=== PATIENT | male | born 1995 | race African-American/Black ===

== ENCOUNTER 2016-10-13 17:37 | Emergency (ER) | payer OTHER ==
[~2016-10-13] VITALS: Ht 170.2 cm; Wt 60.0 kg
[~2016-10-13 17:37] MED LIST: Z.0.NO CURRENT MEDS
[2016-10-13 17:39] VITALS: BP 124/84; PULSE 70; RESP 16; TEMP 97.4; O2SAT 99
[2016-10-13] MEDS ORDERED: CYCL1TAB29 PO (17:59)
[2016-10-13] MEDS ORDERED: IBUP800T23 PO (17:59)
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
[2016-10-13] MEDS ORDERED: CYCLOBENZAPRINE HCL 10 MG TAB PO ONE (18:00)
[2016-10-13] MEDS ORDERED: IBUPROFEN 800 MG TAB PO ONE (18:00)
== END 2016-10-13 18:32 | disposition home or self-care (01) ==
LOC: NEPB 17:37
DX: S39.012A Strain of muscle, fascia and tendon of lower back, initial encounter (principal); M62.830 Muscle spasm of back; V89.2XXA Person injured in unspecified motor-vehicle accident, traffic, initial encounter
CPT/HCPCS: 99283

== ENCOUNTER 2018-03-09 10:26 | Observation (INO) | payer MEDICAID, OTHER ==
[~2018-03-09] VITALS: Ht 170.2 cm; Wt 62.0 kg
[~2018-03-09 10:26] MED LIST changes: +CYCL10TA PO; +IBUP1TAB7 PO; -Z.0.NO CURRENT MEDS
[2018-03-09 10:34] VITALS: BP 108/65; PULSE 92; RESP 16; TEMP 100.1; O2SAT 95
--- NOTE | 2018-03-09 10:44 | PD ---
HPI Chief Complaint: Skin Problem Time Seen by Provider: 10:42 Travel History International Travel<30 days: No Contact w/Intl Traveler<30days: No Traveled to known affect area: No History of Present Illness HPI 22 YO [id number] m presents to the ED for evaluation of ~12 hour history of "bite" of the left hand. Patient did not see an insect. He can identify no acute injury to the area. He endorses accompanying chills, joint and body aches. Patient denies history of MRSA. Denies numbness, tingling, weakness, limitations or range of motion. He states he is otherwise healthy. States immunizations are up-to-date, patient is in the [employer]. No treatment attempted at home. [facility] Past Medical History Medical History: Denies Significant Hx Developmental Delay: No Diminished Hearing: No Medical other: Yes (STATES ENLARGED TONSALS) Immunizations Current: Yes Tetanus Vaccination: < 5 Years Past Surgical History Surgical History: No Previous Surgery Other Surgery: Yes (ear surgery) Social History Alcohol Use: Yes (SOCIAL) Tobacco Use: Yes (4 CIG DAILY) Substance Use: No Allergies-Medications (Allergen,Severity, Reaction): Coded Allergies: lactose (Unverified Adverse Reaction, Mild, INTOLERANCE, 03/09/18) Reported Meds & Prescriptions Reported Meds & Active Scripts Active No Active Prescriptions or Reported Medications Review of Systems Except as stated in HPI: all other systems reviewed are Neg Physical Exam Narrative GENERAL: Well-nourished, well-developed thin -Thai male in no acute distress. SKIN: Focused skin assessment warm/dry. 1 cm ecchymotic area of the left thenar eminence. Surrounding cellulitic changes 4cm x 3 cm that do not involve the phalanx or the wrist. No crepitus. No fluctuance. HEAD: Normocephalic. ENT: Pearly gomez tympanic membranes bilaterally. Oropharynx without erythema, edema, exudate. EYES: No scleral icterus. No injection or drainage. NECK: Supple, trachea midline. No JVD or lymphadenopathy. CARDIOVASCULAR: Regular rate and rhythm without murmurs, gallops, or rubs. RESPIRATORY: Breath sounds clear and equal bilaterally. No accessory muscle use. GASTROINTESTINAL: Abdomen soft, non-tender, nondistended. MUSCULOSKELETAL: No cyanosis, or edema. FOCUSED LEFT UPPER EXTREMITY EXAM: 2+ radial pulse. Patient retains full, active, painless ROM of the fingers and wrist. Strong finger to thumb opposition with each digit. Neurovascularly intact distally. BACK: Nontender without obvious deformity. No CVA tenderness. Data Data Last Documented VS Vital Signs Date Time Temp Pulse Resp B/P (MAP) Pulse Ox O2 Delivery O2 Flow Rate FiO2 03/09/18 11:33 99.3 83 16 99 Room Air 03/09/18 10:34 108/65 (79) Orders Orders Acetaminophen (Tylenol) (03/09/18 10:45) Basic Metabolic Panel (Bmp) (03/09/18 10:48) Complete Blood Count With Diff (03/09/18 10:48) Iv Access Insert/Monitor (03/09/18 10:48) Sodium Chlor 0.9% 1000 Ml Inj (Ns 1000 M (03/09/18 11:00) Lactic Acid (03/09/18 10:48) Clindamycin 900 Mg/Ns Premix (Cleocin 90 (03/09/18 11:45) Hand, Limited (2vws) (03/09/18 12:06) Piperacil-Tazo 4.5 Gm Premix (Zosyn 4.5 (03/09/18 12:15) Blood Culture (03/09/18 12:10) Admit Order (Ed Use Only) (03/09/18 12:20) Place In Observation (03/09/18 ) Vital Signs (Adult) Q4H (03/09/18 12:20) Activity Oob Ad Philomena (03/09/18 12:20) Diet Regular Basic (03/09/18 Lunch) Sodium Chloride 0.9% Flush (Ns Flush) (03/09/18 12:30) Sodium Chloride 0.9% Flush (Ns Flush) (03/09/18 21:00) Acetaminophen (Tylenol) (03/09/18 12:30) Complete Blood Count With Diff (03/10/18 06:00) Scd Bilateral/Knee High DEANGELO.BID (03/09/18 12:20) Naloxone Inj (Narcan Inj) (03/09/18 12:30) Magnesium Hydroxide Liq (Milk Of Magnesi (03/09/18 12:30) Sennosides (Senokot) (03/09/18 12:30) Bisacodyl Supp (Dulcolax Supp) (03/09/18 12:30) Lactulose Liq (Lactulose Liq) (03/09/18 12:30) Labs Laboratory Tests Test 03/09/18 10:51 White Blood Count 16.5 TH/MM3 Red Blood Count 4.91 MIL/MM3 Hemoglobin 15.6 GM/DL Hematocrit 46.1 % Mean Corpuscular Volume 93.9 FL Mean Corpuscular Hemoglobin 31.8 PG Mean Corpuscular Hemoglobin Concent 33.9 % Red Cell Distribution Width 12.0 % Platelet Count 257 TH/MM3 Mean Platelet Volume 7.6 FL Neutrophils (%) (Auto) 84.9 % Lymphocytes (%) (Auto) 8.3 % Monocytes (%) (Auto) 5.5 % Eosinophils (%) (Auto) 0.1 % Basophils (%) (Auto) 1.2 % Neutrophils # (Auto) 14.0 TH/MM3 Lymphocytes # (Auto) 1.4 TH/MM3 Monocytes # (Auto) 0.9 TH/MM3 Eosinophils # (Auto) 0.0 TH/MM3 Basophils # (Auto) 0.2 TH/MM3 CBC Comment DIFF FINAL Differential Comment Blood Urea Nitrogen 6 MG/DL Creatinine 1.00 MG/DL Random Glucose 99 MG/DL Calcium Level 8.7 MG/DL Sodium Level 137 MEQ/L Potassium Level 4.2 MEQ/L Chloride Level 102 MEQ/L Carbon Dioxide Level 28.6 MEQ/L Anion Gap 6 MEQ/L Estimat Glomerular Filtration Rate 114 ML/MIN Lactic Acid Level 0.8 mmol/L MDM Medical Decision Making Medical Screen Exam Complete: Yes Emergency Medical Condition: Yes Differential Diagnosis Insect bite versus cellulitis versus sepsis versus other Narrative Course 22-year-old male presents the ED for evaluation of bug bite of the left hand with accompanying fevers and body aches. Onset about 12 hours ago. Temp 100.1 , pulse 92 on presentation. Physical exam consistent with early cellulitis left thenar eminence. IV was established. Patient was ministered 1 L normal saline IV, 500 mg Tylenol by mouth. Blood cultures were obtained. Patient was administered 900 mg clindamycin. CBC: WBC 16.5. Hemoglobin 15.6. CMP BUN 6, creatinine 1. Lactic acid 0.8. Given the elevated white count will admit the patient. Patient is somewhat concerned about this, states that [place] Mom at bedside reassured the patient. He agrees to admission. Blood cultures were obtained. Patient was administered IV Zosyn. I spoke with Dr. Rodriguez who agrees to accept the patient to the medicine service. Please see medicine notes for disposition. Sepsis Criteria SIRS Criteria (2 or more): Heart rate over 90, WBC > 08940, < 4000 or > 10% bands Sepsis Criteria (SIRS+source): Infect source susp/known Diagnosis Primary Impression: Cellulitis of left hand Scripts No Active Prescriptions or Reported Meds Alyse Bonilla Mar 09, 2018 10:44
[2018-03-09] MEDS ORDERED: ACETAMINOPHEN 500 MG CPLT PO ONE (10:45)
[2018-03-09] MEDS ORDERED: SODIUM CHLOR 0.9% 1000 ML INJ 1,000 ML IV ONE (11:00)
[2018-03-09 11:06] LABS: BASOPHIL # 0.2 TH/MM3 (0-0.2); BASOPHIL % 1.2 % (0.0-2.0); EOSINOPHIL % 0.1 % (0.0-4.0); HEMATOCRIT 46.1 % (39.0-51.0); HEMOGLOBIN 15.6 GM/DL (13.0-17.0); LYMPH % 8.3 % (9.0-44.0); LYMPHOCYTE # 1.4 TH/MM3 (1.0-4.8); MEAN CELL VOLUME 93.9 FL (80.0-100.0); MEAN CORPUSCULAR HEMOGLOBIN 31.8 PG (27.0-34.0); MEAN CORPUSCULAR HGB CONC 33.9 % (32.0-36.0); MEAN PLATELET VOLUME 7.6 FL (7.0-11.0); MONO % 5.5 % (0.0-8.0); MONOCYTE # 0.9 TH/MM3 (0-0.9); NEUT % 84.9 % (16.0-70.0); PLATELET COUNT 257 TH/MM3 (150-450); RED BLOOD COUNT 4.91 MIL/MM3 (4.50-5.90); WHITE BLOOD COUNT 16.5 TH/MM3 (4.0-11.0)
[2018-03-09 11:16] LABS: CALCIUM 8.7 MG/DL (8.5-10.1)
[2018-03-09 11:17] LABS: BICARBONATE 28.6 MEQ/L (21.0-32.0)
[2018-03-09 11:33] VITALS: PULSE 83; RESP 16; TEMP 99.3; O2SAT 99
[2018-03-09] MEDS ORDERED: CLINDAMYCIN 900 MG/NS PREMIX 50 ML IV ONE (11:45)
[2018-03-09] MEDS ORDERED: PIPERACIL-TAZO 4.5 GM PREMIX 100 ML IV ONE (12:15)
[2018-03-09] MEDS ORDERED: SENNOSIDES 8.6 MG TAB PO PRN (12:30)
[2018-03-09] MEDS ORDERED: SODIUM CHLORIDE 0.9% FLUSH 10 ML FLUSH IV FLUSH PRN (12:30)
[2018-03-09] MEDS ORDERED: MAGNESIUM HYDROXIDE SUSP 30 ML CUP PO PRN (12:30)
[2018-03-09] MEDS ORDERED: NALOXONE HCL 0.4 MG/ML AMP IV PUSH PRN (12:30)
[2018-03-09] MEDS ORDERED: BISACODYL 10 MG SUPP RECTAL PRN (12:30)
[2018-03-09] MEDS ORDERED: ACETAMINOPHEN 325 MG TAB PO PRN (12:30)
[2018-03-09] MEDS ORDERED: LACTULOSE SYRUP 20 GM/30 ML CUP PO PRN (12:30)
--- NOTE | 2018-03-09 12:45 | RADRPT ---
EXAM DATE: 03/09/2018 12:32 PM EDT AGE/SEX: 22 years / Male INDICATIONS: Infected area left thumb CLINICAL DATA: This is the patient's initial encounter. Patient reports that signs and symptoms have been present for 2 days and indicates a pain score of 5/10. MEDICAL/SURGICAL HISTORY: None. None. COMPARISON: No prior exams available for comparison. FINDINGS: Bony structures are intact and in normal alignment. Osseous density is normal. Soft tissues are unre markable. No radiopaque foreign bodies seen. CONCLUSION: No acute fracture left hand. Electronically signed by: Herbie Ward MD 03/09/2018 12:43 PM EDT
[2018-03-09 13:49] VITALS: BP 93/52; PULSE 68; RESP 16; TEMP 98.1; O2SAT 99
--- NOTE | 2018-03-09 14:04 | HHI.HP ---
[facility] [place] No Primary Care Physician Admission Diagnosis Cellulitis left hand Diagnoses: (1) Cellulitis of left hand Diagnosis: Principal Chief Complaint: Left hand erythema Travel History International Travel<30 Days: No Contact w/Intl Traveler <30 Da: No Traveled to Known Affected Are: No Sepsis Criteria SIRS Criteria (2 or more): WBC > 50451, < 4000 or > 10% bands History of Present Illness 22-year-old male with known chronic medical illnesses who presented to the emergency department today to evaluate a spot on his left hand. Patient states that he noticed yesterday that there was a dark color radiated area is located on his left thenar area. He denies any pain unless you push on it. There is been no signs of any insect bite, injury, exudates, purulence. Patient indicates that he had a fever of 101.0 yesterday. He came to the emergency department for evaluation today. Patient had low-grade fever of 100.1. Workup was performed with x-rays which are unremarkable. Laboratory study was performed which did show elevated white count. Because of that reason it was recommended by the ER that the patient be observed in the hospital for further evaluation. Patient has not undergone any outpatient treatment or management. Review of Systems Constitutional: COMPLAINS OF: Fever Integumentary: COMPLAINS OF: Abnormal pigmentation Except as stated in HPI: all other systems reviewed are Neg Past Family Social History Past Medical History No chronic medical illnesses Past Surgical History Ear surgery Reported Medications No Active Prescriptions or Reported Medications Allergies: Coded Allergies: lactose (Unverified Adverse Reaction, Mild, INTOLERANCE, 03/09/18) Family History Family history was reviewed and unremarkable Social History Patient smokes about half pack of cigarettes a day for 1 year. Patient drinks alcohol occasionally. Patient denies any illicit drug Physical Exam Vital Signs Vital Signs Date Time Temp Pulse Resp B/P (MAP) Pulse Ox O2 Delivery O2 Flow Rate FiO2 03/09/18 13:49 98.1 68 16 93/52 (66) 99 Room Air 03/09/18 11:33 99.3 83 16 99 Room Air 6/24/18 10:34 100.1 92 16 108/65 (79) 95 Physical Exam GENERAL: Well-developed, well-nourished, in no acute distress. alert and orientated HEENT: Head is normocephalic without any lesions or masses noted. Facial features are symmetric. Eyes: Pupils equal round reactive to light. Extraocular muscles are intact. Conjunctivae were clear. Oropharyngeal: Pharynx without any erythema edema. Tongue is midline without deviation. Buccal mucosa is moist without any masses or lesions NECK: Supple without any masses. Trachea midline no deviation. No JVD, no bruits are appreciated CARDIAC: Regular rhythm, regular rate. S1/S2 are heard. No murmurs gallops or rubs. LUNGS: Clear to auscultation bilaterally. No wheeze, rhonchi or rales. No use of accessory muscles on inspiration or expiration. ABDOMEN: Soft, nontender. Nondistended. Bowel sounds heard in all 4 quadrants. No organomegaly or masses. Negative rebound, negative guarding EXTREMITIES: No edema, pulses are equal bilaterally. No cyanosis or clubbing NEUROLOGY: Mood and affect appear appropriate. Cranial nerves II through XII grossly intact. Muscle strength 5/5 in upper and lower extremities bilaterally. Deep tendon reflexes are 2+ in upper and lower extremities bilaterally. Left hand: On the thenar area there appears to be a small area measuring 0.5 cm what appears to be like a small bruise. There is no puncture wound, fluctuance , mass, induration, edema. There is some mild erythema noted proximal 1 cm annular around the area. Appears to look like a bruise Laboratory Laboratory Tests Test 03/09/18 10:51 White Blood Count 16.5 Red Blood Count 4.91 Hemoglobin 15.6 Hematocrit 46.1 Mean Corpuscular Volume 93.9 Mean Corpuscular Hemoglobin 31.8 Mean Corpuscular Hemoglobin Concent 33.9 Red Cell Distribution Width 12.0 Platelet Count 257 Mean Platelet Volume 7.6 Neutrophils (%) (Auto) 84.9 Lymphocytes (%) (Auto) 8.3 Monocytes (%) (Auto) 5.5 Eosinophils (%) (Auto) 0.1 Basophils (%) (Auto) 1.2 Neutrophils # (Auto) 14.0 Lymphocytes # (Auto) 1.4 Monocytes # (Auto) 0.9 Eosinophils # (Auto) 0.0 Basophils # (Auto) 0.2 CBC Comment DIFF FINAL Differential Comment Blood Urea Nitrogen 6 Creatinine 1.00 Random Glucose 99 Calcium Level 8.7 Sodium Level 137 Potassium Level 4.2 Chloride Level 102 Carbon Dioxide Level 28.6 Anion Gap 6 Estimat Glomerular Filtration Rate 114 Lactic Acid Level 0.8 Date/Time Source Procedure Growth Status 03/09/18 12:20 Blood Line Aerobic Blood Culture Pending Received 03/09/18 12:20 Blood Line Anaerobic Blood Culture Pending Received Result Diagram: 03/09/18 1051 03/09/18 1051 Imaging Last Impressions Hand X-Ray 03/09/18 1206 Signed Impressions: CONCLUSION: No acute fracture left hand. Caprini VTE Risk Assessment Caprini VTE Risk Assessment: No/Low Risk (score <= 1) Caprini Risk Assessment Model Point Value = 1 Point Value = 2 Point Value = 3 Point Value = 5 Age 41-60 Minor surgery BMI > 25 kg/m2 Swollen legs Varicose veins or History of unexplained or recurrent spontaneous Oral contraceptives or hormone replacement Sepsis (< 1 month) Serious lung disease, including pneumonia (< 1 month) Abnormal pulmonary function Acute myocardial infarction Congestive heart failure (< 1 month) History of inflammatory bowel disease Medical patient at bed rest Age 61-74 Arthroscopic surgery Major open surgery (> 45 min) Laparoscopic surgery (> 45 min) Malignancy Confined to bed (> 72 hours) Immobilizing plaster cast Central venous access Age >= 75 History of VTE Family history of VTE Factor V Leiden Prothrombin [id number] Lupus anticoagulant Anticardiolipin antibodies Elevated serum homocysteine Heparin-induced thrombocytopenia Other congenital or acquired thrombophilia Stroke (< 1 month) Elective arthroplasty Hip, pelvis, or leg fracture Acute spinal cord injury (< 1 month) Prophylaxis Regimen Total Risk Factor Score Risk Level Prophylaxis Regimen 0-1 Low Early ambulation 2 Moderate Order ONE of the following: *Sequential Compression Device (SCD) *Heparin 5000 units SQ BID 3-4 Higher Order ONE of the following medications: *Heparin 5000 units SQ TID *Enoxaparin/Lovenox 40 mg SQ daily (WT < 150 kg, CrCl > 30 mL/min) *Enoxaparin/Lovenox 30 mg SQ daily (WT < 150 kg, CrCl > 10-29 mL/min) *Enoxaparin/Lovenox 30 mg SQ BID (WT < 150 kg, CrCl > 30 mL/min) AND/OR *Sequential Compression Device (SCD) 5 or more Highest Order ONE of the following medications: *Heparin 5000 units SQ TID (Preferred with Epidurals) *Enoxaparin/Lovenox 40 mg SQ daily (WT < 150 kg, CrCl > 30 mL/min) *Enoxaparin/Lovenox 30 mg SQ daily (WT < 150 kg, CrCl > 10-29 mL/min) *Enoxaparin/Lovenox 30 mg SQ BID (WT < 150 kg, CrCl > 30 mL/min) AND *Sequential Compression Device (SCD) Assessment and Plan Assessment and Plan Cellulitis of the left hand -Status post IV antibiotic of Zosyn, clindamycin in the emergency department -Keep hand clean, wash with soap and water daily -Bactrim DS 1 tablet twice daily Leukocytosis -Continue IV fluid -Monitor CBC DVT prevention -Low risk, early ambulation Nikolai Cummings Mar 09, 2018 14:04
--- NOTE | 2018-03-09 14:49 | HHI.DCPOC ---
Discharge Care Plan Diagnosis: (1) Cellulitis of left hand Goals to Promote Your Health * To prevent worsening of your condition and complications * To maintain your health at the optimal level Directions to Meet Your Goals Take your medications as prescribed Follow your dietary instruction Follow activity as directed Keep your appointments as scheduled Take your immunizations and boosters as scheduled If your symptoms worsen call your PCP, if no PCP go to Urgent Care Center or Emergency Room Smoking is Dangerous to Your Health. Avoid second hand smoke Call the 24-hour hour crisis hotline for domestic abuse at Nikolai Cummings Mar 09, 2018 14:49
[2018-03-09 16:00] VITALS: BP 111/61; PULSE 72; RESP 21; TEMP 97.2; O2SAT 95
[2018-03-09] MEDS: SODIUM CHLOR 0.9% 1000 ML INJ 1,000 ML IV SCH (16:09)
[2018-03-09] MEDS: SULFAMETHOXAZOLE-TRIMETHOPRIM DS 800-160 MG TAB PO SCH ×2 (16:10→21:28)
[2018-03-09 20:00] VITALS: BP 108/66; PULSE 73; RESP 18; TEMP 97.9; O2SAT 98
[2018-03-09] MEDS ORDERED: SODIUM CHLORIDE 0.9% FLUSH 10 ML FLUSH IV FLUSH SCH (21:00)
[2018-03-10] VITALS: BP 115/57; PULSE 66; RESP 18; TEMP 97.8; O2SAT 98
[2018-03-10] MEDS: SODIUM CHLOR 0.9% 1000 ML INJ 1,000 ML IV SCH (02:09)
[2018-03-10 06:27] LABS: AUTOMATED NEUTROPHIL # 5.7 TH/MM3 (1.8-7.7); BASOPHIL % 0.5 % (0.0-2.0); EOSINOPHIL # 0.1 TH/MM3 (0-0.4); EOSINOPHIL % 1.2 % (0.0-4.0); HEMATOCRIT 39.7 % (39.0-51.0); MEAN CELL VOLUME 93.4 FL (80.0-100.0); MEAN CORPUSCULAR HGB CONC 35.3 % (32.0-36.0); MEAN PLATELET VOLUME 7.8 FL (7.0-11.0); MONO % 9.3 % (0.0-8.0); MONOCYTE # 0.9 TH/MM3 (0-0.9); PLATELET COUNT 240 TH/MM3 (150-450); RED BLOOD COUNT 4.25 MIL/MM3 (4.50-5.90); RED CELL DISTRIBUTION WIDTH 12.2 % (11.6-17.2); WHITE BLOOD COUNT 9.7 TH/MM3 (4.0-11.0)
[2018-03-10] MEDS ORDERED: SULF1TAB23 PO (07:18)
--- NOTE | 2018-03-10 07:25 | HHI.PR ---
Subjective Remarks Patient seen and examined today for cellulitis and leukocytosis, Patient is much improved, WBC returned to normal after hydration. Remains afebrile. Vitals stable Objective Vitals Vital Signs Date Time Temp Pulse Resp B/P (MAP) Pulse Ox O2 Delivery O2 Flow Rate FiO2 03/10/18 00:00 97.8 66 18 115/57 (76) 98 03/09/18 20:00 97.9 73 18 108/66 (80) 98 03/09/18 16:00 97.2 72 21 111/61 (78) 95 03/09/18 14:15 03/09/18 13:49 98.1 68 16 93/52 (66) 99 Room Air 03/09/18 11:33 99.3 83 16 99 Room Air 03/09/18 10:34 100.1 92 16 108/65 (79) 95 I/O 03/09/18 03/09/18 03/09/18 03/10/18 03/10/18 03/10/18 07:00 15:00 23:00 07:00 15:00 23:00 Intake Total 1150 ml 560 ml 1200 ml Output Total 400 ml Balance 1150 ml 160 ml 1200 ml Intake Oral 560 ml IV Total 1150 ml 1200 ml Output Urine Total 400 ml # Voids 3 2 # Bowel Movements 0 0 Result Diagram: 03/10/18 0530 03/09/18 1051 Imaging Last Impressions Hand X-Ray 03/09/18 1206 Signed Impressions: CONCLUSION: No acute fracture left hand. Objective Remarks GENERAL: Well-developed, well-nourished, in no acute distress. alert and orientated HEENT: Head is normocephalic without any lesions or masses noted. Facial features are symmetric. Eyes: Extraocular muscles are intact. Conjunctivae were clear. NECK: Supple without any masses. Trachea midline no deviation. No JVD, CARDIAC: Regular rhythm, regular rate. S1/S2 are heard. No murmurs gallops or rubs. LUNGS: Clear to auscultation bilaterally. No wheeze, rhonchi or rales. No use of accessory muscles on inspiration or expiration. ABDOMEN: Soft, nontender. Nondistended. Bowel sounds heard in all 4 quadrants. No organomegaly or masses. Negative rebound, negative guarding EXTREMITIES: No edema, pulses are equal bilaterally. No cyanosis or clubbing NEUROLOGY: Mood and affect appear appropriate. Cranial nerves II through XII grossly intact.moving all extremity\ies, speach is clear. Left hand: On the thenar area there appears to be a small area measuring 0.5 cm what appears to be like a small bruise. There is no puncture wound, fluctuance , mass, induration, edema. There is some mild erythema noted proximal 1 cm annular around the area. Appears to look like a bruise Urinary Catheter: No Vascular Central Line Catheter: No A/P Assessment and Plan Cellulitis of the left hand -Status post IV antibiotic of Zosyn, clindamycin in the emergency department -Keep hand clean, wash with soap and water daily -Bactrim DS 1 tablet twice daily Leukocytosis, resolved -Continue IV fluid -Monitor CBC DVT prevention -Low risk, early ambulation Discharge Planning Discharge home in stable condition Diet: regular diet Activity: Ad Philomena Medication per medication reconciliation sheet Follow up with Primary medical doctor in 1 week Nikolai Cummings Mar 10, 2018 07:25
--- NOTE | 2018-03-13 11:21 | PD ---
Physical Exam Narrative I, Dr. Dick, have reviewed the advance practice practitioner's documentation and am in agreement, met with the patient face to face, made the diagnosis, and the medical decision making was done by me. *My assessment and Findings: Please see mid-level provider note for full history and physical and disposition. Briefly, patient presented to the emergency department complaining of left hand swelling, pain and fever (tmax 101 ). States that he believes that he was possibly bitten by an insect. Patient does have a low-grade temp in the ER and had swelling tenderness and slight erythema to the left thenar eminence. Will order IV fluids, antipyretics, labs , x-ray, and likely admission for observation for IV antibiotics. Data Data Last Documented VS Vital Signs Date Time Temp Pulse Resp B/P (MAP) Pulse Ox O2 Delivery O2 Flow Rate FiO2 03/09/18 11:33 99.3 83 16 99 Room Air 03/09/18 10:34 108/65 (79) Orders Orders Acetaminophen (Tylenol) (03/09/18 10:45) Basic Metabolic Panel (Bmp) (03/09/18 10:48) Complete Blood Count With Diff (03/09/18 10:48) Iv Access Insert/Monitor (03/09/18 10:48) Sodium Chlor 0.9% 1000 Ml Inj (Ns 1000 M (03/09/18 11:00) Lactic Acid (03/09/18 10:48) Clindamycin 900 Mg/Ns Premix (Cleocin 90 (03/09/18 11:45) Hand, Limited (2vws) (03/09/18 12:06) Piperacil-Tazo 4.5 Gm Premix (Zosyn 4.5 (03/09/18 12:15) Blood Culture (03/09/18 12:10) Admit Order (Ed Use Only) (03/09/18 12:20) Place In Observation (03/09/18 ) Vital Signs (Adult) Q4H (03/09/18 12:20) Activity Oob Ad Philomena (03/09/18 12:20) Diet Regular Basic (03/09/18 Lunch) Sodium Chloride 0.9% Flush (Ns Flush) (03/09/18 12:30) Sodium Chloride 0.9% Flush (Ns Flush) (03/09/18 21:00) Acetaminophen (Tylenol) (03/09/18 12:30) Complete Blood Count With Diff (03/10/18 06:00) Scd Bilateral/Knee High DEANGELO.BID (03/09/18 12:20) Naloxone Inj (Narcan Inj) (03/09/18 12:30) Magnesium Hydroxide Liq (Milk Of Magnesi (03/09/18 12:30) Sennosides (Senokot) (03/09/18 12:30) Bisacodyl Supp (Dulcolax Supp) (03/09/18 12:30) Lactulose Liq (Lactulose Liq) (03/09/18 12:30) Labs Laboratory Tests Test 03/09/18 10:51 White Blood Count 16.5 TH/MM3 Red Blood Count 4.91 MIL/MM3 Hemoglobin 15.6 GM/DL Hematocrit 46.1 % Mean Corpuscular Volume 93.9 FL Mean Corpuscular Hemoglobin 31.8 PG Mean Corpuscular Hemoglobin Concent 33.9 % Red Cell Distribution Width 12.0 % Platelet Count 257 TH/MM3 Mean Platelet Volume 7.6 FL Neutrophils (%) (Auto) 84.9 % Lymphocytes (%) (Auto) 8.3 % Monocytes (%) (Auto) 5.5 % Eosinophils (%) (Auto) 0.1 % Basophils (%) (Auto) 1.2 % Neutrophils # (Auto) 14.0 TH/MM3 Lymphocytes # (Auto) 1.4 TH/MM3 Monocytes # (Auto) 0.9 TH/MM3 Eosinophils # (Auto) 0.0 TH/MM3 Basophils # (Auto) 0.2 TH/MM3 CBC Comment DIFF FINAL Differential Comment Blood Urea Nitrogen 6 MG/DL Creatinine 1.00 MG/DL Random Glucose 99 MG/DL Calcium Level 8.7 MG/DL Sodium Level 137 MEQ/L Potassium Level 4.2 MEQ/L Chloride Level 102 MEQ/L Carbon Dioxide Level 28.6 MEQ/L Anion Gap 6 MEQ/L Estimat Glomerular Filtration Rate 114 ML/MIN Lactic Acid Level 0.8 mmol/L MDM Supervised Visit with THEODORE: Yes Diagnosis Primary Impression: Cellulitis of left hand Patient Instructions: General Instructions, Cellulitis (DC) Departure Forms: Tests/Procedures Scripts Sulfamethoxazole-Trimethoprim (Sulfamethoxazole-Trimethoprim) 800-160 Mg Tab 1 TAB PO Q12HR for Infection for 10 Days, TAB Prov: Nikolai Cummings 03/10/18 Danya Dick MD Mar 13, 2018 11:21
== END 2018-03-10 08:25 | disposition home or self-care (01) ==
LOC: PHEFT 10:26 → PHEDA 12:22 → PH3B 14:09
PROVIDERS: ADMIT Hospitalist; ATTEND Hospitalist
DX: L03.114 Cellulitis of left upper limb (principal); S60.562A Insect bite (nonvenomous) of left hand, initial encounter; W57.XXXA Bitten or stung by nonvenomous insect and other nonvenomous arthropods, initial encounter; F17.210 Nicotine dependence, cigarettes, uncomplicated
CPT/HCPCS: 73120; 80048; 83605; 85025; 87040; 96361; 96365; 99285; G0378; J2543; J7030